=== PATIENT | male | born 1995 | race Caucasian/White ===

== ENCOUNTER 2017-01-18 18:37 | Emergency (ER) | payer SELFPAY ==
[~2017-01-18] VITALS: Ht 185.4 cm; Wt 90.0 kg
[2017-01-18] MEDS ORDERED: LIDOCAINE HCL 1% 20ML VIAL (Pyxis) INJ INFIL ONE (22:15)
[2017-01-18] MEDS ORDERED: IBUPROFEN 600MG TABLET PO ONE (22:45)
[2017-01-18] MEDS ORDERED: BACITRACIN ZINC OINT UDPKT TOP ONE (22:45)
[2017-01-19 00:59] VITALS: BP 121/68
== END 2017-01-19 01:16 | disposition home or self-care (01) ==
LOC: ER 19:36
DX: S61.411A Laceration without foreign body of right hand, initial encounter (principal); F12.10 Cannabis abuse, uncomplicated; V43.62XA Car passenger injured in collision with other type car in traffic accident, initial encounter; Y93.89 Activity, other specified; Y92.488 Other paved roadways as the place of occurrence of the external cause
CPT/HCPCS: 12001; 73130; 99284; A4217; J3490; Z7610

== ENCOUNTER 2017-04-16 18:32 | Emergency (ER) | payer SELFPAY ==
[~2017-04-16] VITALS: Ht 180.3 cm; Wt 82.0 kg
[2017-04-16] MEDS ORDERED: SODIUM CHLORIDE 0.9% 1,000 ML IV ONE (21:04)
[2017-04-16] MEDS ORDERED: KETOROLAC 30MG/ML VIAL IV STA (21:04)
[2017-04-16] MEDS ORDERED: ETOMIDATE 2MG/ML 10ML VIAL IV ONE (21:15)
[2017-04-16] MEDS ORDERED: MIDAZOLAM HCL 5 MG/ML VIAL ONE (22:17)
[2017-04-16] MEDS ORDERED: PROPOFOL 200MG/20ML VIAL IV ONE ×3 (22:26→23:30)
[2017-04-16] MEDS ORDERED: MIDAZOLAM HCL 2 MG/2 ML VIAL IV ONE (23:30)
[2017-04-17 00:21] VITALS: BP 129/66
== END 2017-04-17 00:49 | disposition home or self-care (01) ==
LOC: ER 19:32
DX: S43.004A Unspecified dislocation of right shoulder joint, initial encounter (principal); F12.10 Cannabis abuse, uncomplicated; X50.1XXA Overexertion from prolonged static or awkward postures, initial encounter; Y93.64 Activity, baseball; Y92.89 Other specified places as the place of occurrence of the external cause; Y99.8 Other external cause status
CPT/HCPCS: 23650; 73030; 96361; 96374; 99152; 99285; J1885; J2250; J3490; J7030; Z7610; A4565; J2704; L3670

== ENCOUNTER 2017-05-17 17:43 | Emergency (ER) | payer SELFPAY ==
[~2017-05-17] VITALS: Ht 182.9 cm; Wt 73.0 kg
[2017-05-17 18:44] LABS: BASOPHILS % 0.7 % (0.0-2.0); EOSINOPHILS % 1.5 % (0.0-5.0); HEMATOCRIT. 43.4 % (42.0-52.0); HEMOGLOBIN. 15.3 g/dL (14.0-18.0); MEAN CORPUSCULAR HEMOGLOBIN 31.8 pg (28.0-32.0); MEAN CORPUSCULAR VOLUME 90.2 fL (80.0-94.0); MEAN PLATELET VOLUME 8.6 fl (7.4-10.4); MONOCYTES % 5.8 % (2.0-8.0); PLATELET 179 x1000/uL (130-400); RED BLOOD CELL COUNT 4.81 mill/uL (4.7-6.1); RED CELL DISTRIBUTION WIDTH 13.1 % (11.6-14.6)
[2017-05-17 18:51] LABS: CHLORIDE 104 mEq/L (98-107)
[2017-05-17 18:59] LABS: ETHANOL BLOOD < 10 mg/dL
[2017-05-17 19:16] LABS: CLARITY URINE CLEAR (CLEAR); COLOR URINE YELLOW (YELLOW); KETONES URINE TRACE (NEGATIVE); LEUKOCYTE ESTERASE URINE NEGATIVE (NEGATIVE); NITRITE URINE NEGATIVE (NEGATIVE); OCCULT BLOOD URINE 1+ (NEGATIVE); PROTEIN URINE 1+ (NEGATIVE); UROBILINOGEN URINE 0.2 E.U./dL (0.2-1.0)
[2017-05-17 19:27] LABS: *AMPHETAMINES SCREEN URINE NEGATIVE (NEGATIVE); *BARBITURATES SCREEN URINE NEGATIVE (NEGATIVE); *BENZODIAZEPINES SCREEN URINE PRESUMTIVE POSITIVE (NEGATIVE); *COCAINE SCREEN URINE NEGATIVE (NEGATIVE); CANNABINOID URINE SCREEN PRESUMTIVE POSITIVE (NEGATIVE); METHADONE URINE SCREEN NEGATIVE (NEGATIVE); OPIATES URINE SCREEN NEGATIVE (NEGATIVE); PHENCYCLIDINE URINE SCREEN NEGATIVE (NEGATIVE)
[2017-05-17 20:50] VITALS: BP 108/60
== END 2017-05-17 20:51 | disposition home or self-care (01) ==
LOC: ER 18:00
DX: G40.409 Other generalized epilepsy and epileptic syndromes, not intractable, without status epilepticus (principal); F12.10 Cannabis abuse, uncomplicated; Z78.1 Physical restraint status; W19.XXXA Unspecified fall, initial encounter; Y92.018 Other place in single-family (private) house as the place of occurrence of the external cause
CPT/HCPCS: 36415; 70450; 80053; 80305; 81003; 85025; 99285; G0482; Z7610

== ENCOUNTER 2019-01-19 06:36 | Emergency (ER) | payer SELFPAY ==
[~2019-01-19] VITALS: Ht 182.9 cm; Wt 80.7 kg
[2019-01-19 06:43] VITALS: BP 108/75
== END 2019-01-19 07:38 | disposition left against medical advice (07) ==
LOC: ER 06:36
DX: Z53.21 Procedure and treatment not carried out due to patient leaving prior to being seen by health care provider (principal)

== ENCOUNTER 2024-04-19 07:37 | Emergency (ER) | payer MEDICAID ==
[~2024-04-19] VITALS: Ht 185.4 cm; Wt 86.0 kg
[2024-04-19 07:43] VITALS: O2SAT 96
[2024-04-19 10:28] VITALS: TEMP 36.50292; O2SAT 100
[2024-04-19 10:36] VITALS: BP 129/79; PULSE 59; RESP 17
[2024-04-19] MEDS: HYDROCODONE/ACETAMINOPHEN 10/325MG TABLET PO ONE (10:36)
[2024-04-19] MEDS: IBUPROFEN 600MG TABLET PO ONE (10:36)
[2024-04-19] MEDS ORDERED: IBUP-2029 MT (11:03)
== END 2024-04-19 11:30 | disposition home or self-care (01) ==
LOC: ER 07:37
DX: S80.211A Abrasion, right knee, initial encounter (principal); F12.10 Cannabis abuse, uncomplicated; Z86.59 Personal history of other mental and behavioral disorders; V49.49XA Driver injured in collision with other motor vehicles in traffic accident, initial encounter; Y93.89 Activity, other specified; Y92.89 Other specified places as the place of occurrence of the external cause; Y99.8 Other external cause status
CPT/HCPCS: 72170; 73552; 73562; 99284